=== PATIENT | female | born 1970 | race Caucasian/White ===

== ENCOUNTER → 2018-02-09 | Outpatient (CLI) | payer OTHER ==
--- NOTE | 2018-02-09 16:03 | REP ---
Clinical: Dyspnea on exertion. . Comparison: None . Technique: PA and lateral. Findings: The mediastinum and cardiac silhouette are normal. The lung alvarez are clear and without acute consolidation, effusion, or pneumothorax. Subtle right hilar adenopathy cannot be excluded and may warrant chest CT evaluation. The skeletal structures are intact and normal. Impression: 1. Subtle right hilar adenopathy cannot be excluded. No prior exams for comparison. Consider chest CT with contrast for further investigation. Electronically Signed by Ector Huston MD 02/09/2018 03:55 P
== END ==
LOC: M LRY 15:11
PROVIDERS: ATTEND Nurse Practitioner Family
DX: R91.8 Other nonspecific abnormal finding of lung field (principal); R06.09 Other forms of dyspnea

== ENCOUNTER → 2018-03-08 | Outpatient (CLI) | payer OTHER ==
--- NOTE | 2018-03-08 17:55 | REPMRS ---
Patient History The patient states she has not had a clinical breast exam in over a year. Patient is postmenopausal. No known family history of cancer. Taking unspecified hormones for 2 years. Digital Mammo Screening Bilat: March 08, 2018 - Exam #: [id number] Bilateral CC and MLO view(s) were taken. Technologist: Sybil Smith, Technologist FINDINGS: There are scattered fibroglandular densities. There has been no change in the appearance of the mammogram from the prior studies. There is a mild amount of scattered fibroglandular density which is fairly symmetric. There is no interval development of dominant mass, architectural distortion, or clustered microcalcification suggestive of malignancy. Assessment: BI-RADS/ACR category 1 mammogram. Negative. Recommendation Routine screening mammogram of both breasts in 1 year (for women over age 40). This patient's Lifetime Breast Cancer RIsk is estimated at 7.4 %. This mammogram was interpreted with the aid of an FDA-approved computer-aided dectection system. Electronically Signed By: Ziggy Wood MD 03/08/18 [id number]
== END ==
LOC: M RAD 15:47
PROVIDERS: ATTEND Family Medicine
DX: Z12.31 Encounter for screening mammogram for malignant neoplasm of breast (principal)

== ENCOUNTER 2018-05-17 06:40 | Day surgery (SDC) | payer OTHER ==
[~2018-05-17] VITALS: Ht 160 cm; Wt 87.1 kg
[~2018-05-17 06:40] MED LIST: BUPR150T3 PO; CITA20TA7 PO; D5W 1,000 ML IV SCH; EZET10TA PO; LEVO125T4 PO; SIMV10TA2 PO; TESS100C PO
[2018-05-17] MEDS ORDERED: LIDOCAINE 1% MDV 20ML VIAL As Ordered ONE (07:18)
[2018-05-17] MEDS ORDERED: CETACAINE SPRAY 5GM As Ordered ONE (07:18)
[2018-05-17] MEDS ORDERED: EPINEPHrine 1MG/10ML SYRINGE 1.5IN As Ordered ONE (07:18)
[2018-05-17] MEDS ORDERED: LIDOCAINE VISCOUS 2% SOLN 15ML UDC As Ordered ONE (07:18)
[2018-05-17] MEDS ORDERED: fentaNYL 100 MCG/2 ML INJECTION (J3010) As Ordered ONE (07:20)
[2018-05-17] MEDS ORDERED: MIDAZOLAM INJ 2 MG/2 ML VIAL (J2250) As Ordered ONE ×2 (07:21→07:29)
[2018-05-17] MEDS ORDERED: THROMBIN SOLN 5,000 UNITS VIAL As Ordered ONE (08:07)
--- NOTE | 2018-05-17 08:35 | RO ---
DATE OF PROCEDURE: 05/17/2018 PREOPERATIVE DIAGNOSIS: Right lung mass, abnormal x-ray. POSTOPERATIVE DIAGNOSIS: Right lung mass, abnormal x-ray. PROCEDURE: Bronchoscopy. SURGEON: Dr. Tashi Sales CLAIM ADJUSTER: ANESTHESIA: Conscious sedation with 75 mcg of Fentanyl and 6 mg of Versed given intravenously and titrated for effect. Local anesthesia was 2% viscous Xylocaine in the nose, Cetacaine Lenox in the pharynx and 1% Xylocaine via the bronchoscope. Other medications are topical Thrombin 5000 units via the bronchoscope. Informed consent was obtained prior to the procedure. OPERATIVE FINDINGS: 1. Diffuse broadening of the shanique. 2. Complete compromise of the right main stem about skilled nursing down, both anteriorly and posteriorly, both intrinsic and with endobronchial disease. DESCRIPTION OF PROCEDURE: After the patient was identified and the above anesthesia given, the fiberoptic bronchoscope was easily passed via the right nares. Hypopharynx was entered and appeared normal. Vocal cords moved well. The trachea was widely patent. The shanique was quite broadened. The left lung was entered first. All segments and subsegments upper and lower lobes easily identified and widely patent. Only minimal changes of chronic bronchitis were noted. Attention was then turned to the right. There was significant extrinsic compression of the membranous portion of the right main stem posteriorly. This in conjunction with very significant amount of endobronchial disease compromised the right main stem. The right upper lobe was able to be entered, but was compromised. The scope was not able to be passed into the distal bronchus intermedius. Multiple biopsies were taken in the area with minimal bleeding. The area was then brushed. Due to coughing, Warren needle biopsies were not attempted. It should be noted that prior to any biopsies being taken, the Percepta brushes were deployed into the left mainstem. Topical Thrombin was then used and when good hemostasis was achieved the scope was withdrawn and the procedure terminated. The patient was taken to the recovery room in good stable condition. No immediate complications of conscious sedation were identified.
[2018-05-17 08:41] VITALS: BP 134/81
== END 2018-05-17 09:10 | disposition home or self-care (01) ==
LOC: M OPP 06:40
PROVIDERS: ATTEND Internal Medicine Pulmonary Disease
DX: C34.01 Malignant neoplasm of right main bronchus (principal); J41.0 Simple chronic bronchitis; E03.9 Hypothyroidism, unspecified; E78.00 Pure hypercholesterolemia, unspecified; Z79.899 Other long term (current) drug therapy; Z87.891 Personal history of nicotine dependence
CPT/HCPCS: 31623; 31625; 87070; 87102; 87116; 87205; 87206; 88104; 88305; 88342; J2250; J3010

== ENCOUNTER → 2018-05-31 | Outpatient (CLI) | payer OTHER ==
[~2018-05-31] MED LIST changes: -D5W 1,000 ML IV SCH; +DECA4TAB PO; +GASTROGRAFIN SOLUTION 30ML (Q9963) As Ordered ONE; +OLAN10TA2 PO; +ONDA8TAB7 PO; +PROC5TA PO
--- NOTE | 2018-05-31 14:37 | REP ---
MRI brain without contrast: History: Small cell carcinoma of the lung. Question metastasis. . Comparison study: No comparison brain imaging. Technique: Axial and sagittal imaging planes are utilized for T1 and T2-weighted scans. Sequences include spin-echo, fast spin echo, FLAIR, and diffusion weighted sequences. MRI findings: No bony calvarial lesion is seen. Craniocervical junction and upper cervical cord are normal in appearance. There is no MR evidence of significant paranasal sinus disease. No intraorbital abnormality is seen. The lateral, third, and fourth ventricles are normal in size and position. Garcia-white differentiation pattern is intact above and below the tentorium. There is no evidence of intracranial hemorrhage. No mass, infarction, extra-axial fluid collection or midline shift is seen. No abnormal white matter lesion is seen. Impression: Negative noncontrast brain MRI study. Electronically Signed by Aneudy Wood MD 05/31/2018 02:28 P
== END ==
LOC: M RAD 12:22
PROVIDERS: ATTEND Internal Medicine Pulmonary Disease
DX: Z85.118 Personal history of other malignant neoplasm of bronchus and lung (principal)
CPT/HCPCS: 70551; Q9963

== ENCOUNTER → 2018-06-05 | Outpatient (CLI) | payer OTHER ==
[~2018-06-05] MED LIST changes: -GASTROGRAFIN SOLUTION 30ML (Q9963) As Ordered ONE
--- NOTE | 2018-06-05 18:58 | REP ---
PET/CT: History: Staging small cell lung carcinoma. Comparisons: Comparison chest CT study June 01, 2018. Comparison is made with [facility] CT study April 24, 2018. TECHNIQUE: 53 minutes following the intravenous injection of a 9.01 mCi dose of F-18 FDG, three-dimensional PET scintigraphy is acquired from the skull base to the proximal thighs. Triplanar noncontrast CT scanning is acquired through the same anatomic range for attenuation correction, and image registration with scan parameters optimized to minimize radiation exposure to the patient. PET scintigraphy and CT datasets were fused and displayed on a workstation with multiplanar and projection display capability. PET/CT Findings: The large right hilar and mediastinal confluent mass seen on recent chest CT is hypermetabolic. Maximum standard uptake value within this large process is 11.21. There are two right pretracheal lymph nodes superior to this which are hypermetabolic as well with maximum standard uptake value 5.77 and 3.86 respectively. There is mildly increased metabolic activity in the associated right pleural effusion, maximum standard uptake value in the pleural fluid region is a 3.56. There is hypermetabolic liana uptake in the paraesophageal lymph nodes adjacent to the distal esophagus just above the diaphragmatic hiatus. Maximum standard uptake value here is 6.51. No other abnormal hypermetabolic uptake is seen. No abnormal adrenal uptake is seen. No abnormal abdominal or pelvic liana uptake is seen. Head and neck soft tissues are unremarkable. Impression: Extensive hypermetabolic uptake in the bulky right hilar and mediastinal process with adenopathy as above. Some pleural uptake is seen in the associated right pleural effusion. No extrathoracic hypermetabolic uptake is appreciated. Electronically Signed by Aneudy Wood MD 06/06/2018 08:17 A
== END ==
LOC: M PLARAD 10:30
PROVIDERS: ATTEND Internal Medicine Pulmonary Disease
DX: C34.31 Malignant neoplasm of lower lobe, right bronchus or lung (principal); J94.9 Pleural condition, unspecified
CPT/HCPCS: 78815; A9552

== ENCOUNTER → 2018-06-15 | Outpatient (CLI) | payer OTHER ==
[~2018-06-15] MED LIST changes: +VITA500045 PO
--- NOTE | 2018-06-19 13:46 | RADONC ---
RADIATION ONCOLOGY CONSULTATION NOTE DATE: 06/15/2018 CHART #: [id number] DIAGNOSIS: Small cell lung carcinoma. STAGE: Extensive. ECOG PERFORMANCE STATUS: 0. CONSULTATION NOTE: Ms. Shaw is a very pleasant 48-year-old white female with the diagnosis of extensive stage small-cell lung carcinoma who has initiated systemic therapy and been presented at our multidisciplinary tumor conference for discussion of consolidative external beam radiation therapy. HISTORY OF PRESENT ILLNESS: The patient has a 30 pack-year smoking history and smoked up until 2017. The patient had increasing dyspnea on exertion and a chest x-ray was ordered on 02/09/2018 which showed a possible subtle right hilar adenopathy could not be excluded. She also had a persistent cough and a CT of the chest was done 04/24/2018 which showed nonspecific mediastinal lymphadenopathy. There was also noted to be severe diffuse consolidation involving the right lower lobe. There was an obstructive bronchus intermedius and right lower lobe bronchi. There were mild ground glass opacities present within the posterior segment of the right upper lobe. There was some consolidation of the right middle lobe. There was also a small right pleural effusion. On 05/17/2018, the patient underwent biopsy of her right mainstem bronchus and pathology confirmed a small cell lung carcinoma. A head CT scan was done on 06/05/2018 and showed extensive hypermetabolic uptake with bulky right hilar and mediastinal lymphadenopathy. There was some pleural uptake seen in association with the right pleural effusion. No extra thoracic hypermetabolic uptake was seen. The patient was seen by Dr. Franz, her medical oncologist, and has initiated systemic therapy with cisplatin and etoposide. The patient's case was presented at our multidisciplinary tumor conference and there was question of lymphangitic spread throughout the right upper lobe as well as activity in the pleural effusion and bilateral mediastinal regions. This would cause the radiation field to be larger than could be tolerated, therefore, rendering her overall stage as extensive stage small-cell lung carcinoma. . PAST MEDICAL HISTORY: The patient's past medical history is positive for hypothyroidism. She has been in generally good health otherwise. ALLERGIES: The patient has NO KNOWN DRUG ALLERGIES. SOCIAL HISTORY: The patient had smoked a pack of cigarettes per day for over 25 years. She quit at the end of 2016. She drinks alcohol socially. FAMILY HISTORY: The patient's family history is positive for a brother with non-Hodgkin's lymphoma. REVIEW OF SYSTEMS: The patient's review of systems is positive for shortness of breath and some pain in her right chest wall and ribs. She also has pain in her right shoulder and back. It is otherwise noncontributory. Denies nausea, vomiting, fevers, chills, night sweats, diplopia, headaches, anxiety or depression, anorexia, weight loss, visual disturbances, chest pain, urinary or bowel difficulties, bone pain, or neurological problems. PHYSICAL EXAMINATION: The patient is a well-developed, well-nourished, 48-year-old female in no acute distress. HEENT exam is normocephalic, atraumatic. Extraocular movements are intact. There is no palpable cervical, supraclavicular, infraclavicular, axillary, or inguinal lymphadenopathy present. Lungs are clear to auscultation and percussion. Heart has a regular rate and rhythm. Abdomen is benign with no hepatosplenomegaly, masses, or tenderness. Skeletal examination reveals no tenderness to pressure or percussion of the bony skeleton. Extremities reveal no clubbing, cyanosis, or edema. Neurologic exam is grossly intact, as is the remainder of the physical examination. ASSESSMENT As per our discussion in multidisciplinary tumor conference, I believe this patient at this time would require too large a field of radiation to incorporate safely. In light of this, I agree with the plan to deliver systemic therapy initially and then to reevaluate her and possibly offer her consolidative radiation therapy after reevaluation. In light of this, I have set her up to see us again in approximately two months' time. I would defer to the expertise of Dr. Jeanie Franz, her medical oncologist, in regards to her systemic therapy. Dr. Franz will be also referring her back to us when she nears completion of that treatment and is reevaluated. This way we have closed the loop and will continue to follow her closely. Thank you for allowing us to participate in the care of this very pleasant woman. If I could be of any further assistance or provide you with any information, please feel free to contact me at anytime. As always with warm regards. The patient has been given our office number as well as my cell phone number if she has any questions whatsoever or if we could provide her with any assistance in the meantime. cc: Jeanie Franz MD [facility] [address] [place] [address] Sales, MD [facility] [id number] [facility] [id number]
== END ==
LOC: M ONCR 08:56
PROVIDERS: ATTEND Radiology Radiation Oncology
DX: C34.01 Malignant neoplasm of right main bronchus (principal)

== ENCOUNTER → 2018-06-18 | Outpatient (CLI) | payer OTHER ==
--- NOTE | 2018-06-18 16:54 | REP ---
Chest two views HISTORY: Right pleural effusion Comparison: 02/10/1980 There is loss of volume in the right hemithorax. Parenchymal density is present in the right lower lobe consistent with atelectasis or infiltrate. There is blunting of the right costophrenic angle due to a small pleural effusion. The left lung is clear. The heart is normal in size. The pulmonary vasculature is normal in appearance. The bony structure is intact. IMPRESSION: 1. Right lower lobe atelectasis or infiltrate with likely collapse of the right lower lobe. 2. Small right pleural effusion. Electronically Signed by Elvin Castano MD 06/18/2018 04:44 P
== END ==
LOC: M RAD 16:20
PROVIDERS: ATTEND Internal Medicine Medical Oncology
DX: J90 Pleural effusion, not elsewhere classified (principal)

== ENCOUNTER → 2018-06-21 | Outpatient (CLI) | payer OTHER ==
[~2018-06-21] MED LIST changes: +BUPIVACAINE HCL 0.5% 10 ML VIAL As Ordered ONE; +LIDOCAINE 2% MDV 20 ML VIAL As Ordered ONE; +ceFAZolin 1GM INJ (J0690 PER 500MG) As Ordered ONE
--- NOTE | 2018-06-27 12:04 | REPIR ---
DATE OF PROCEDURE: 06/21/2018 ATTENDING SURGEON: Dr. Brittany German ASSISTANTS: Cheryl Maurice and Apurva Acosta PREOPERATIVE DIAGNOSIS: Lung cancer. POSTOPERATIVE DIAGNOSIS: Lung cancer. PROCEDURE: Ultrasound-guided right internal jugular vein cannulation. Fluoroscopic guided right internal jugular vein tunneled central venous catheter with subcutaneous port placement using a Bard PowerPort with a 20 cm length catheter. INDICATION: The patient is a 48-year-old female with lung cancer who requires access for chemotherapy and will undergo placement of a Bard PowerPort Port-a-Cath. Risks, benefits and alternative treatment options were discussed with the patient. ANESTHESIA: Local with 20 mL of 2% lidocaine mixed with 0.5% Marcaine. FLUORO TIME: 0.1 minute. CONTRAST: None. COMPLICATIONS: None. DRAINS: None. SPECIMENS: None. PROCEDURE: The patient was taken to the angiography suite, placed supine on the angiography room table, and then prepped and draped in a standard surgical fashion. Ultrasound was used to guide cannulation of the right internal jugular vein. A port was placed in a pocket created in the right chest and a catheter was tunneled through the right internal jugular vein entry site and advanced through the introducer sheath. The catheter was cut to 23 cm and placed with the tip in the superior vena cava/right atrial junction. Catheter was attached to the port. The port was then placed in the pocket. The port was cannulated and noted to aspirate easily and then flushed with heparinized saline. The incisions were closed with #3-0 Monocryl in an inverted interrupted fashion. Steri-Strips and dressings were applied. The patient tolerated the procedure well. All instrument, sponge, needle counts were correct at the end of the case. There were no complications. Dr. German was present for and directed the entire case. The patient was transferred to the holding area and subsequently discharged in stable condition.
== END | disposition home or self-care (01) ==
LOC: M IRPRO 07:33
PROVIDERS: ATTEND Internal Medicine Medical Oncology
DX: C34.90 Malignant neoplasm of unspecified part of unspecified bronchus or lung (principal)
CPT/HCPCS: 36561; 77001; C1788; C1894; J0690

== ENCOUNTER → 2018-07-13 | Outpatient (CLI) | payer OTHER ==
[~2018-07-13] MED LIST changes: -BUPIVACAINE HCL 0.5% 10 ML VIAL As Ordered ONE; +GASTROGRAFIN SOLUTION 30ML (Q9963) As Ordered ONE; +ISOVUE-370 76% 100ML VIAL (Q9967) As Ordered ONE; -LIDOCAINE 2% MDV 20 ML VIAL As Ordered ONE; -ceFAZolin 1GM INJ (J0690 PER 500MG) As Ordered ONE
--- NOTE | 2018-07-13 13:14 | REP ---
Clinical: Small cell lung cancer for restaging. Technique: Axial contrast enhanced images from the thoracic inlet to the upper abdomen with coronal and sagittal re-formations using 100 ml Isovue 370 intravenous contrast material. Comparison: 06/01/2018. Findings: Moderate/large right pleural effusion is increased from prior examination. The large mass involving the right mid to inferior portion of the mediastinum and extending into the right infrahilar lung zone along with right hilar adenopathy has markedly improved from prior examination. While these improvements are difficult to quantify, as example soft tissue in the subcarinal space at the same level currently measures approximately 2.7 x 2.1 cm and previously measured greater than 3.8 x 4.9 cm. The atelectasis/partial collapse to the right lower lobe is again noted and similar to prior examination. Subtle area of non solid opacity along the periphery of the right upper lobe measuring 2.6 cm maximal diameter and small areas of consolidation versus mass somewhat obscured along the anterior margin of the right pleural effusion within the right lower lobe appear relatively similar to prior examination. The left hemithorax is clear. Mediastinum demonstrates relatively normal thoracic aorta, and heart/pericardium. The right main pulmonary artery demonstrates subtle narrowing due to surrounding elements of mass / adenopathy but appears improved as compared to prior examination. The left-sided pulmonary vasculature appear normal. Osseous structures are intact without focal abnormality. Limited upper abdomen demonstrates normal bilateral adrenal glands and stable right renal cyst. Impression: 1. Overall there has been considerably improved appearance to the malignancy and adenopathy which is markedly decreased in size when compared to prior examination. 2. A right pleural effusion has increased from prior examination. 3. Small areas of non solid opacity in the right lung appears similar to prior examination and are otherwise nonspecific. Electronically Signed by Ector Huston MD 07/13/2018 01:06 P
--- NOTE | 2018-07-13 13:18 | REP ---
Clinical: Small cell lung cancer for restaging status post chemotherapy. Technique: Axial contrast enhanced images from the lung bases to the pubic symphysis using oral (per protocol) and 100 ml Isovue 370 intravenous contrast material. Comparison: 06/01/2018. Findings: Liver, spleen, pancreas, gallbladder, bilateral adrenal glands and left kidney are normal. Right kidney includes stable 3 cm cyst. The enteric system is without obstruction or acute inflammatory process. Scattered sigmoid diverticula noted without acute diverticulitis. Pelvis demonstrates normal partially collapsed bladder and age-appropriate uterus/adnexa. No ascites. No free air. No adenopathy. Atherosclerotic changes to the aorta without aneurysm or dissection. Musculoskeletal structures intact without focal osseous abnormality. Impression: Stable simple right renal cyst. No acute abdominopelvic pathology appreciated. Sigmoid diverticulosis without acute diverticulitis. No evidence for metastatic disease. Specifically, no ascites, adenopathy, or focal inflammatory changes. Electronically Signed by Ector Huston MD 07/13/2018 01:09 P
== END ==
LOC: M RAD 09:29
PROVIDERS: ATTEND Internal Medicine Medical Oncology
DX: C34.90 Malignant neoplasm of unspecified part of unspecified bronchus or lung (principal); N28.1 Cyst of kidney, acquired; K57.30 Diverticulosis of large intestine without perforation or abscess without bleeding; J90 Pleural effusion, not elsewhere classified
CPT/HCPCS: 71260; 74177; Q9963; Q9967

== ENCOUNTER → 2018-08-10 | Outpatient (CLI) | payer OTHER ==
[~2018-08-10] MED LIST changes: -EZET10TA PO; +EZET10TA21 PO
--- NOTE | 2018-08-10 16:55 | REP ---
CT of the abdomen and pelvis multiphase imaging: CT abdomen is performed without IV contrast. CT of the abdomen and pelvis is performed with IV contrast during the portal venous phase of enhancement. CT of the abdomen is performed during the delayed equilibrium phase of enhancement. Bowel contrast is used on all phases of the study. Comparison is 07/13/2018. The a right pleural effusion in the visualized lower lung alvarez on the prior study has significantly improved. The hepatic parenchyma, gallbladder, pancreas and spleen are unremarkable and unchanged. The adrenals are unremarkable and unchanged. There is a Bosniak type 1 simple cyst in the upper pole right kidney measuring at 2.9 cm, not significantly changed. The kidneys are otherwise unremarkable. The abdominal aorta is unremarkable. There is no periaortic adenopathy or mass. The bowel and mesentery are unremarkable and unchanged. Pelvis: The uterus, adnexa and bladder are unremarkable. There is no adenopathy or ascites. The pelvic bowel loops are unremarkable. There are no lytic, blastic or destructive skeletal changes. Impression: The previous right pleural effusion has significantly decreased. Stable simple cyst in the upper pole of the right kidney, unchanged. Otherwise, negative CT study of the abdomen and pelvis. Electronically Signed by Jose D Rice MD 08/10/2018 04:47 P
--- NOTE | 2018-08-10 17:04 | REP ---
CT of the chest with IV contrast: Comparison is 07/13/2018. The previous right pleural effusion and compression atelectasis of the right lower lobe has almost entirely resolved. The right hilar and subcarinal adenopathy has improved and is almost entirely resolved. There is no other mediastinal lymph node enlargement. There is no left hilar lymph node enlargement. The semi solid pleural-based lesion laterally in the right upper lobe measures 2.6 cm and is unchanged. The small pleural based nodules posteriorly in the right lower lobe are unchanged. There are no lytic, blastic or destructive skeletal changes, as previously. Impression: There has been improvement from the prior study as described. Electronically Signed by Jose D Rice MD 08/10/2018 04:56 P
--- NOTE | 2018-08-10 17:13 | REP ---
CT brain without and with IV contrast: History: Restaging. Small cell lung carcinoma. Comparison MRI study is from May 31, 2018. CT contrast dose: 100 ml of intravenous Isovue 370. CT findings: No bony calvarial lesion is seen. There is vascular calcification at the distal carotid arteries bilaterally. The visualized paranasal sinuses are clear. No intraorbital lesion is appreciated. Garcia-white differentiation pattern is normal above and below the tentorium. There is no evidence of cranial mass or hemorrhage. Contrast enhanced study shows enhancement in normal vascular structures. No abnormal contrast enhancement is appreciated. Impression: There is no evidence of intracranial metastasis. Electronically Signed by Aneudy Wood MD 08/10/2018 05:46 P
== END ==
LOC: M RAD 14:20
PROVIDERS: ATTEND Internal Medicine Medical Oncology
DX: C34.90 Malignant neoplasm of unspecified part of unspecified bronchus or lung (principal); N28.1 Cyst of kidney, acquired; R91.8 Other nonspecific abnormal finding of lung field
CPT/HCPCS: 70470; 71260; 74178; Q9963; Q9967

== ENCOUNTER → 2018-08-28 | Outpatient (CLI) | payer OTHER ==
[~2018-08-28] MED LIST changes: -GASTROGRAFIN SOLUTION 30ML (Q9963) As Ordered ONE; -ISOVUE-370 76% 100ML VIAL (Q9967) As Ordered ONE
--- NOTE | 2018-08-29 11:09 | RADONC ---
RADIATION ONCOLOGY CONSULTATION NOTE DATE: 08/28/2018 CHART NUMBER: [id number] DIAGNOSIS: Small cell lung carcinoma. STAGE: Extensive. ECOG PERFORMANCE STATUS: 0 CONSULTATION NOTE: Ms. Shaw as a very pleasant, 48-year-old white female with the diagnosis of extensive stage small-cell lung carcinoma who has been undergoing systemic therapy and recently completed her fourth cycle of chemotherapy consisting of initially cis-ketchikan and etoposide, and subsequently undergoing carboplatin/etoposide/atezolizumab. The patient reports that her last cycle of chemotherapy was on August 09. She is now presenting for consideration of external beam radiation therapy for thoracic consolidation. The patient was initially seen by us on 06/15/2018, and I refer to that note for a more thorough history of present illness. PAST MEDICAL HISTORY: The patient's past medical history is positive for hypothyroidism. She has been in otherwise good health. ALLERGIES: The patient has NO KNOWN DRUG ALLERGIES. SOCIAL HISTORY: The patient had smoked a pack of cigarettes per day for over 25 years. She quit in late 2016. She drinks alcohol socially. FAMILY HISTORY: The patient's family history is positive for brother with non-Hodgkin's lymphoma. REVIEW OF SYSTEMS: The patient's review of systems is noncontributory. Denies nausea, vomiting, fevers, chills, night sweats, diplopia, headaches, anxiety or depression, anorexia, weight loss, visual disturbances, chest pain, urinary or bowel difficulties, bone pain, or neurological problems. PHYSICAL EXAMINATION: The patient is a well-developed, well-nourished, 48-year-old white female, in no acute distress. HEENT exam is normocephalic, atraumatic. Extraocular movements are intact. There is no palpable cervical, supraclavicular, infraclavicular, axillary, or inguinal lymphadenopathy present. Lungs are clear to auscultation and percussion. Heart has a regular rate and rhythm. Abdomen is benign with no hepatosplenomegaly, masses, or tenderness. Skeletal examination reveals no tenderness to pressure or percussion of the bony skeleton. Extremities reveal no clubbing, cyanosis, or edema. Neurologic exam is grossly intact, as is the remainder of the physical examination. ASSESSMENT: I believe this patient would be a candidate for thoracic consolidative radiation therapy and I have so informed her. I have discussed with the patient in detail the potential benefits as well as possible acute and chronic sequelae of external beam radiation therapy. We discussed logistics of treatment planning, simulation and subsequent fractionated daily radiation treatments. I have scheduled the patient for the next available simulation slot and radiation treatments will begin subsequently. Thank you for allowing us to participate in the care of this very pleasant woman. If I could be of any further assistance or provide with you any information, please free to contact me anytime. cc: MD Tashi Martinez MD MTDD
== END ==
LOC: M ONCR 09:01
PROVIDERS: ATTEND Radiology Radiation Oncology
DX: C34.01 Malignant neoplasm of right main bronchus (principal)

== ENCOUNTER → 2018-09-05 | Outpatient (CLI) | payer OTHER ==
--- NOTE | 2018-09-05 12:52 | REP ---
NUCLEAR LUNG DIFFERENTIAL VENTILATION PERFUSION SCAN: Following the intravenous administration of 1.1 millicuries technetium 99m tagged MAA and the inhalation of 2 millicuries of technetium 99m DTPA aerosol, images of the lungs are obtained in the anterior and posterior projections. There is a greater degree of greater degree of ventilation and perfusion in the left lung compared to the right. Matching ventilation and perfusion defects are seen in the right upper and lower lung zones with no areas of V/Q mismatch. Differential counts are obtained in the upper, middle and lower thirds of each lung. The mean perfusion of the left lung is 66.6% and of the right lung is 33.4%. The mean ventilation of the left lung is 68.3% and of the right lung is 31.7%. Electronically Signed by Jose D Garcia MD 09/07/2018 12:58 P
--- NOTE | 2018-09-05 13:00 | REP ---
CHEST, TWO VIEWS: Two views of the chest are performed. Comparison made with prior CT of 08/10/2018 as well as other prior CT exams and chest radiographs. There is a mass like density in the right apex laterally. There is a small amount of right pleural fluid or thickening. There is linear fibroatelectatic change medially in the right lung base. Left lung is clear. Heart is normal in size. Mediastinal silhouette is unchanged. Right central venous catheter is seen with the tip in the superior vena cava. IMPRESSION: Pleural based mass density right apex. Small amount of right pleural fluid or thickening at the costophrenic angle. Mild linear fibroatelectatic change medial right lung base. Electronically Signed by Jose D Garcia MD 09/08/2018 06:26 P
== END ==
LOC: M RAD 09:52
PROVIDERS: ATTEND Radiology Radiation Oncology
DX: C34.31 Malignant neoplasm of lower lobe, right bronchus or lung (principal)
CPT/HCPCS: 71046; 78598; A9540; A9567

== ENCOUNTER → 2018-09-19 | Outpatient (RCR) | payer OTHER ==
--- NOTE | 2018-09-04 10:25 | RADONC ---
RADIATION ONCOLOGY SIMULATION NOTE: DATE OF SERVICE: 09/03/2018 CHART NUMBER: [id number]. SIMULATION NOTE: Ms. Shaw was taken to the CT scan for CT simulation of her lung field. CT was accomplished without difficulty or discomfort. Radiation treatment planning is underway, and radiation treatments will begin subsequently. An immobilization device was created without difficulty or discomfort. It will be used throughout the course of treatment. I was physically present throughout the course of CT simulation.
--- NOTE | 2018-09-18 11:26 | RADONC ---
RADIATION ONCOLOGY PROGRESS NOTE DATE: 09/17/2018 CHART NUMBER: [id number] PROGRESS NOTE: Ms. Shaw is presently at a dose of 540 cGy to her right lung and is tolerating treatments quite well at this point with no complaints related to her radiation therapy. She is having no increased difficulty swallowing or breathing. REVIEW OF SYSTEMS: The patient's review of systems is noncontributory. Denies nausea, vomiting, fevers, chills, night sweats, diplopia, headaches, anxiety or depression, anorexia, weight loss, visual disturbances, chest pain, urinary or bowel difficulties, bone pain, or neurological problems. PHYSICAL EXAMINATION: The patient's skin shows no evidence of moist or dry desquamation. The remainder of her physical exam remains unchanged. Ms. Shaw is tolerating treatments quite well and radiation will continue as scheduled.
[~2018-09-19] MED LIST changes: +LEVO150T7 PO; +ONDA8TAB10 PO; -ONDA8TAB7 PO; -SIMV10TA2 PO; +SIMV10TA21 PO; +SYNT125T PO
== END ==
LOC: M ONCR 09-03 13:43
PROVIDERS: ATTEND Radiology Radiation Oncology
DX: C34.01 Malignant neoplasm of right main bronchus (principal)

== ENCOUNTER 2018-10-19 15:06 | Outpatient (RCR) | payer OTHER ==
--- NOTE | 2018-09-25 10:50 | RADONC ---
RADIATION ONCOLOGY PROGRESS NOTE DATE: 09/24/2018. CHART NUMBER: [id number] Mrs. Yisel Shaw, with a diagnosis of small cell carcinoma of the lung, extensive, is currently receiving local regional radiotherapy. Her current dose is 1440 cGy of an anticipated 3780 cGy. Thus far, she has no problems related to her disease or to her treatments. REVIEW OF SYSTEMS: She specifically denies any nausea, vomiting, coughing, sputum production or hemoptysis. She also denies significant difficulty with breathing. Her energy level is such that she is able to maintain most for day-to-day activities without any alteration of her lifestyle. Skin irritation is not an issue for her, although she does complain of some skin itching. EXAMINATION FINDINGS: The skin within the irradiated volume looks normal. There is no palpable peripheral lymphadenopathy. Lungs are distant bilaterally. Heart is regular without murmurs. The remainder of the physical examination is unchanged. IMPRESSION: Tolerating therapy well. PLAN: Treatments to continue
--- NOTE | 2018-10-03 10:50 | RADONC ---
RADIATION ONCOLOGY PROGRESS NOTE DATE: 10/01/2018 CHART NUMBER: [id number]. Yisel Shaw with a diagnosis of a small cell carcinoma of the lung, extensive, is currently receiving local regional radiotherapy. Her current dose is 2340 cGy of an anticipated 3780 cGy and then consider boosting. She reports no significant ill effects from the treatment. REVIEW OF SYSTEMS: She specifically denies any nausea, vomiting, coughing, sputum production or hemoptysis. She is experiencing a minimal amount of odynophagia with some sensation of food "sticking" in her esophagus. She takes smaller bites when she eats and eats softer food to avoid this sensation. She also denies any major issues with fatigue and reports no skin irritation. EXAMINATION FINDINGS: The skin within the irradiated volume looks normal without any appreciable erythema and certainly no focal desquamation. There is no palpable peripheral lymphadenopathy and lungs are distant bilaterally but clear. The remainder of the physical examination is unchanged. IMPRESSION: Tolerating therapy well. PLAN: Treatments to continue.
--- NOTE | 2018-10-11 10:18 | RADONC ---
RADIATION ONCOLOGY PROGRESS NOTE DATE: 10/08/2018 CHART NUMBER: [id number] PROGRESS NOTE: Ms. Shaw is presently at a dose of 2880 cGy to her right lung and is tolerating treatments quite well at this point with no complaints related to radiation therapy. She is having no increased difficulty swallowing or other problems. REVIEW OF SYSTEMS: The patient's review of systems is noncontributory. Denies nausea, vomiting, fevers, chills, night sweats, diplopia, headaches, anxiety or depression, anorexia, weight loss, visual disturbances, chest pain, urinary or bowel difficulties, bone pain, or neurological problems. PHYSICAL EXAMINATION: The patient's skin is in good condition with no evidence of moist or dry desquamation. The remainder of her physical exam remains unchanged. Ms. Shaw is tolerating treatments quite well and radiation will continue as scheduled.
--- NOTE | 2018-10-17 09:43 | RADONC ---
RADIATION ONCOLOGY PROGRESS NOTE DATE: 10/15/2018 CHART NUMBER: [id number] PROGRESS NOTE: Ms. Shaw is presently at a dose of 3780 cGy to her right lung and is tolerating treatments quite well at this point with no complaints related to her radiation therapy. She is having no increased difficulty breathing or swallowing. REVIEW OF SYSTEMS: The patient's review of systems is noncontributory. Denies nausea, vomiting, fevers, chills, night sweats, diplopia, headaches, anxiety or depression, anorexia, weight loss, visual disturbances, chest pain, urinary or bowel difficulties, bone pain, or neurological problems. PHYSICAL EXAMINATION: The patient's skin is in good condition with no evidence of radiation change present. There is no moist or dry desquamation. The remainder of physical exam remains unchanged. Ms. Shaw is tolerating treatments quite well and radiation will continue as scheduled.
[~2018-10-19 15:06] MED LIST changes: -LEVO150T7 PO; -ONDA8TAB10 PO; +ONDA8TAB7 PO; +SIMV10TA2 PO; -SIMV10TA21 PO; -SYNT125T PO
== END 2018-10-20 ==
LOC: M ONCR 15:06
PROVIDERS: ATTEND Radiology Radiation Oncology
DX: C34.01 Malignant neoplasm of right main bronchus (principal)

== ENCOUNTER 2018-10-25 15:24 | Outpatient (RCR) | payer OTHER ==
--- NOTE | 2018-10-24 10:50 | RADONC ---
RADIATION ONCOLOGY PROGRESS NOTE DATE: 10/23/2018 CHART NUMBER: [id number] PROGRESS NOTE: Mrs. Shaw with a diagnosis of small cell carcinoma of the lung is currently receiving local regional adjuvant radiotherapy. Her current dose is 4680 cGy and she seems to be tolerating her radiotherapy reasonably well. She denies any nausea, vomiting, coughing, sputum production or hemoptysis, although she has a minimal amount of odynophagia. Her energy level is satisfactory and she is able to maintain most of her day-to-day activities without any alteration of her lifestyle. Skin irritation is minimal within the irradiated volume. EXAMINATION FINDINGS: Skin within the irradiated volume shows minimal amount of erythema with no focal desquamation. There is no palpable peripheral lymphadenopathy. Lungs are distant bilaterally. Heart: Regular without murmurs. Abdomen: Without evidence of hepatomegaly, masses, deep abdominal tenderness. Extremities: Without cyanosis, clubbing or edema. The remainder of the physical examination is unchanged. IMPRESSION: Tolerating therapy well. PLAN: Treatments to continue. Thank you for allowing us the opportunity of participation in the management of this patient.
--- NOTE | 2018-10-27 09:32 | RADONC ---
RADIATION ONCOLOGY END OF TREATMENT SUMMARY DATE OF END OF TREATMENT SUMMARY: 10/25/2018 DATE: 10/26/2018 CHART NUMBER: [id number] DIAGNOSIS: Small cell carcinoma of the lung, stage extensive. ECOG PERFORMANCE STATUS: 0. PLAN OF RADIOTHERAPY: Local regional radiotherapy for local regional control/consolidation radiotherapy. Date radiotherapy started 09/13/2018. Date radiotherapy completed 10/25/2018. Dose - The patient received a total of 5040 cGy administered in 28 fractions over 42 elapsed days. Prior to treatment delivery localization was accomplished upon our CT simulator and treatment portals were defined by the use of multiple leaf collimators. Gradual reducing portals were implemented during her course of radiotherapy in order to spare as much normal lung tissue as possible. She was treated with a 15 MV photon beam in via a 3-D conformal radiotherapy technique. The 95 isodose line was chosen both in reference to the initial 3780 cGy as well as the final seven treatments of 1260 cGy. STATUS OF TUMOR: The patient's tumor status will be determined by future radiographic studies, howver, during course of radiotherapy there was no clinical evidence of local regional progression nor was there clinical evidence of further distant metastatic disease. TOLERANCE IN GENERAL: Treatments were relatively well tolerated. She denied any significant nausea, vomiting, coughing, sputum production or hemoptysis. She did experience some mild odynophagia/dysphagia during her course of therapy which would be anticipated with such therapies. DISPOSITION: Return to clinic in 1 month for postradiotherapy followup visit and skin check and she was advised to return to her referring physicians as per their directions and instructions. Thank you for referring this very sarah lady to us allowing us the opportunity of participation in her overall management. cc: MD Tasih Martinez MD
== END 2018-11-19 ==
LOC: M ONCR 15:24
PROVIDERS: ATTEND Radiology Radiation Oncology
DX: C34.01 Malignant neoplasm of right main bronchus (principal)

== ENCOUNTER → 2018-11-13 | Outpatient (CLI) | payer OTHER ==
[~2018-11-13] MED LIST changes: +ISOVUE-370 76% 100ML VIAL (Q9967) As Ordered ONE
--- NOTE | 2018-11-13 11:52 | REP ---
CT BRAIN WITHOUT AND WITH IV CONTRAST: HISTORY: Small cell lung carcinoma. Restaging post chemo. Comparison head CT study August 10, 2018. CT CONTRAST DOSE: 75 mL of intravenous Isovue [address] FINDINGS: Preliminary digital hazmat technician radiograph remains unremarkable. Bony calvarium is intact on bone window settings. Visualized paranasal sinuses are clear. There is mild vascular calcification in the distal internal carotid arteries again seen. On soft tissue window settings, there is no evidence of intracranial mass or hemorrhage. No evidence of infarct, extra-axial fluid collection, mass or midline shift. Postcontrast images show enhancement in normal vasculature. No abnormal intracranial enhancement is appreciated. IMPRESSION: There is no evidence of intracranial metastasis. Electronically Signed by Aneudy Wood MD 11/13/2018 04:07 P
== END ==
LOC: M RAD 10:55
PROVIDERS: ATTEND Internal Medicine Medical Oncology
DX: C34.91 Malignant neoplasm of unspecified part of right bronchus or lung (principal); Z92.21 Personal history of antineoplastic chemotherapy; Z92.3 Personal history of irradiation
CPT/HCPCS: 70470; Q9967

== ENCOUNTER → 2018-11-28 | Outpatient (CLI) | payer OTHER ==
[~2018-11-28] MED LIST changes: -ISOVUE-370 76% 100ML VIAL (Q9967) As Ordered ONE
--- NOTE | 2018-11-30 10:25 | RADONC ---
RADIATION ONCOLOGY FOLLOWUP NOTE DATE: 11/28/2018 CHART NUMBER: [id number] DIAGNOSIS: Small cell carcinoma of the lung. STAGE: Extensive. ECOG PERFORMANCE STATUS: 0 FOLLOWUP NOTE: Ms. Shaw is a very pleasant, 48-year-old white female with the diagnosis of extensive stage small-cell lung carcinoma, who is presenting to us today for routine followup visit 1 month post completion of external beam radiation therapy. The patient presents today reporting that generally she is doing quite well with no complaints at this time related to her radiation therapy or disease. She has got no skin pain or other problems at this point. REVIEW OF SYSTEMS: The patient's review of systems is noncontributory. Denies nausea, vomiting, fevers, chills, night sweats, diplopia, headaches, anxiety or depression, anorexia, weight loss, visual disturbances, chest pain, urinary or bowel difficulties, bone pain, or neurological problems. PHYSICAL EXAMINATION: The patient is a well-developed, well-nourished, 48-year-old white female in no acute distress. HEENT exam is normocephalic, atraumatic. Extraocular movements are intact. There is no palpable cervical, supraclavicular, infraclavicular, axillary, or inguinal lymphadenopathy present. Lungs are clear to auscultation and percussion. Heart has a regular rate and rhythm. Abdomen is benign with no hepatosplenomegaly, masses, or tenderness. Skeletal examination reveals no tenderness to pressure or percussion of the bony skeleton. Extremities reveal no clubbing, cyanosis, or edema. Neurologic exam is grossly intact, as is the remainder of the physical examination. ASSESSMENT: The patient is clinically doing quite well now post radiation. She is scheduled for a PET scan on 12/04/2018 and is continuing with her maintenance systemic therapy with her medical oncologist, Dr. Franz on 12/10/2018. In light of her close management and followup with her medical oncologist and her continued treatment, I am discharging this patient from our followup except on a p.r.n. basis. cc: MD Tashi Martinez MD
== END ==
LOC: M ONCR 13:55
PROVIDERS: ATTEND Radiology Radiation Oncology
DX: C34.01 Malignant neoplasm of right main bronchus (principal); Z92.3 Personal history of irradiation

== ENCOUNTER → 2018-12-25 | Outpatient (CLI) | payer OTHER ==
--- NOTE | 2018-12-25 19:08 | REP ---
PET/CT: History: Restaging small cell lung carcinoma. Status post chemo and radiation therapy. Comparisons: Comparison PET-CT study June 05, 2018. TECHNIQUE: 49 minutes following the intravenous injection of a 8.92 mCi dose of F-18 FDG, three-dimensional PET scintigraphy is acquired from the skull base to the proximal thighs. Triplanar noncontrast CT scanning is acquired through the same anatomic range for attenuation correction, and image registration with scan parameters optimized to minimize radiation exposure to the patient. PET scintigraphy and CT datasets were fused and displayed on a workstation with multiplanar and projection display capability. PET/CT Findings: There is improved aeration and less volume loss in the right lower lobe. However, there is fibrosis and discoid atelectasis post radiation change in the right lower lobe and much of the right middle and upper lobe. A small right pleural effusion is again noted perhaps slightly larger than on the prior study. The right lower lobe mass is dramatically improved or resolved. There is some mildly hypermetabolic uptake in the postradiation fibrosis and consolidation in the right lower lobe with maximum standard uptake value 3.25. Mildly increased uptake is seen in the right middle lobe parenchymal disease similarly with maximum standard uptake value 3.10. Mildly hypermetabolic pleural uptake is seen at mid chest posteriorly with maximum standard uptake value 3.83. There is mildly hypermetabolic uptake in the reactive change in the right upper lobe with maximum standard uptake value 4.85. There is an area of peripheral consolidation in the right upper lobe which is hypermetabolic, maximum SUV 5.78. The right lung pulmonary parenchymal changes may be inflammatory and/or post radiation pneumonitis changes. There is no hypermetabolic liana or hilar uptake. No abnormal uptake is seen in the adrenal glands. No abnormal hypermetabolic uptake is seen in the abdomen or pelvis. The head and neck soft tissues are unremarkable. Impression: Significant improvement in the previously noted bulky right hilar and mediastinal hypermetabolic uptake. Increased inflammatory versus postradiation change in the right lung with mildly hypermetabolic infiltrates. Small right pleural effusion is seen increased in size. No other abnormal hypermetabolic uptake seen. Electronically Signed by Aneudy Wood MD 12/25/2018 07:52 P
== END ==
LOC: M PLARAD 09:30
PROVIDERS: ATTEND Nurse Practitioner Family
DX: C34.91 Malignant neoplasm of unspecified part of right bronchus or lung (principal)
CPT/HCPCS: 78815; A9552

== ENCOUNTER → 2019-03-18 | Outpatient (CLI) | payer OTHER ==
[~2019-03-18] MED LIST changes: +GASTROGRAFIN SOLUTION 30ML (Q9963) As Ordered ONE; +ISOVUE-370 76% 100ML VIAL (Q9967) As Ordered ONE; +LEVO150T7 PO; +ONDA8TAB10 PO; -ONDA8TAB7 PO; -SIMV10TA2 PO; +SIMV10TA21 PO; +SYNT125T PO
--- NOTE | 2019-03-19 02:54 | REP ---
Clinical: Restaging lung cancer. Technique: Axial contrast enhanced images from the thoracic inlet to the upper abdomen with coronal and sagittal re-formations using 100 ml Isovue 370 intravenous contrast material. Comparison: 08/10/2018. Findings: Current examination demonstrates small right pleural effusion along with significant presumed scarring and fibrotic changes and a somewhat linear distribution along the medial aspect of the right hemithorax with small elements of scattered air space disease. Findings are increased from prior examination and nonspecific. Differential diagnosis would include progressive radiation type changes, but underlying active disease cannot definitively be excluded. No significant mediastinal or bony hilar adenopathy noted. Small amount of pericardial fluid is also identified and likely again related to post radiation type changes. The left hemithorax appears relatively well aerated and clear. Thoracic aorta without aneurysm or dissection. No cardiomegaly. Musculoskeletal structures appear intact. [id number] identified with tip in the SVC. Limited upper abdomen demonstrates normal bilateral adrenal glands and stable right renal cyst. Impression: 1. Increased findings as described above involving the right hemithorax which may represent primarily post radiation type changes and should be correlated clinically. Subtle superimposed acute active disease cannot be excluded. Electronically Signed by Ector Huston MD 03/19/2019 02:46 A
--- NOTE | 2019-03-19 03:01 | REP ---
Clinical: Restaging lung cancer. Technique: Axial contrast enhanced images from the lung bases to the pubic symphysis using oral (per protocol) and 100 ml Isovue 370 intravenous contrast material with coronal and sagittal re-formations. Comparison: 08/10/2018. Findings: Liver, spleen, pancreas, gallbladder, bilateral adrenal glands and left kidney are normal. Right kidney includes stable 2.8 cm cysts. The enteric system is without obstruction or acute inflammatory process. Few scattered sigmoid diverticula noted without acute diverticulitis. Somewhat prominent and mildly irregular submucosal fat deposition at the cecum and proximal ascending colon is suggested and consideration for colonoscopy may be warranted. Pelvis demonstrates normal bladder and age-appropriate uterus/adnexa. No ascites. No free air. No intraperitoneal or retroperitoneal adenopathy. No obvious mass/metastatic disease. Atherosclerotic changes to the aorta noted without aneurysm. Musculoskeletal structures without focal abnormality. Impression: 1. Stable right renal cyst. 2. Few scattered sigmoid diverticula without acute diverticulitis. 3. Mildly prominent and somewhat asymmetric fat deposition at the cecum and proximal ascending colon may warrant colonoscopy. 4. No ascites, adenopathy, or evidence for metastatic disease noted. Electronically Signed by Ector Huston MD 03/19/2019 02:53 A
== END ==
LOC: M RAD 07:56
PROVIDERS: ATTEND Internal Medicine Medical Oncology
DX: C34.90 Malignant neoplasm of unspecified part of unspecified bronchus or lung (principal)
CPT/HCPCS: 71260; 74177; Q9963; Q9967

== ENCOUNTER → 2019-04-02 | Outpatient (CLI) | payer OTHER ==
[~2019-04-02] MED LIST changes: -GASTROGRAFIN SOLUTION 30ML (Q9963) As Ordered ONE; -ISOVUE-370 76% 100ML VIAL (Q9967) As Ordered ONE
--- NOTE | 2019-04-02 19:42 | REP ---
PET/CT: History: Restaging lung cancer. Small cell carcinoma right lung diagnose April 2017. Status post chemo immuno therapy Comparisons: Comparison PET-CT studies are from December 25, 2018 and June 05, 2018. Comparison chest CT study March 18, 2019. TECHNIQUE: 45 minutes following the intravenous injection of a 8.73 mCi dose of F-18 FDG, three-dimensional PET scintigraphy is acquired from the skull base to the proximal thighs. Triplanar noncontrast CT scanning is acquired through the same anatomic range for attenuation correction, and image registration with scan parameters optimized to minimize radiation exposure to the patient. PET scintigraphy and CT datasets were fused and displayed on a workstation with multiplanar and projection display capability. PET/CT Findings: Head and neck soft tissues are unremarkable. There is a post radiation at the GE distribution in the right posterior extrathoracic skeletal muscle and chronic infiltrates with collapse in the right lung. Maximum standard uptake value in the extrathoracic soft tissues and 3.41. Maximum standard uptake value in the chronic a post radiation infiltrates in the right lung range up to 4.89. There is some minimal borderline pleural uptake in the right base laterally, maximum standard uptake value here 3.08. This is a improved morphologically however from the prior study. No focal mass lesion is seen in the pleural space. No other abnormal hypermetabolic uptake is seen within the thorax. No abnormal uptake is seen in the abdomen or pelvis. Scan is otherwise unremarkable. Impression: Findings consistent with postradiation change in the right thorax. No evidence of recurrent hypermetabolic mass lesion or adenopathy. Electronically Signed by Aneudy Wood MD 04/02/2019 08:03 P
== END ==
LOC: M PLARAD 13:27
PROVIDERS: ATTEND Internal Medicine Medical Oncology
DX: C34.81 Malignant neoplasm of overlapping sites of right bronchus and lung (principal)
CPT/HCPCS: 78815; A9552

== ENCOUNTER → 2019-06-25 | Outpatient (CLI) | payer OTHER ==
[~2019-06-25] MED LIST changes: +PROHANCE 279.3MG/ML 15ML VIAL As Ordered ONE
--- NOTE | 2019-06-25 15:59 | REP ---
MRI BRAIN WITHOUT CONTRAST FOLLOWED BY WITH CONTRAST: HISTORY: Extensive stage small cell lung carcinoma. COMPARISON: Head CT study, November 13, 2018. TECHNIQUE: Axial and sagittal imaging planes are utilized for T1- and T2-weighted scans. Sequences include spin-echo, fast spin echo, FLAIR, and diffusion weighted sequences. Gadolinium enhancement dose is 16 mL of intravenous ProHance. MRI FINDINGS: No bony calvarial defect is appreciated. Craniocervical junction and upper cervical cord are unremarkable. There is no MR evidence of significant paranasal sinus disease. No intraorbital abnormality is seen. The deep facial and skull base soft tissues are symmetric and unremarkable. Lateral, third, and fourth ventricles are normal in size and position. Garcia-white differentiation pattern is normal above and below the tentorium. There is no evidence of intracranial mass, infarct, hemorrhage, or midline shift. Diffusion-weighted scans show no evidence of restricted diffusion to suggest acute ischemia. Postcontrast images show enhancement in normal vasculature. No abnormal intracranial contrast enhancement is appreciated. IMPRESSION: There is no evidence of intracranial metastatic disease. Electronically Signed by Aneudy Wood MD 06/25/2019 04:41 P
== END ==
LOC: M RAD 14:44
PROVIDERS: ATTEND Internal Medicine Medical Oncology
DX: C34.90 Malignant neoplasm of unspecified part of unspecified bronchus or lung (principal)
CPT/HCPCS: 70553; A9576

== ENCOUNTER → 2019-07-25 | Outpatient (CLI) | payer OTHER ==
[~2019-07-25] MED LIST changes: +GASTROGRAFIN SOLUTION 30ML (Q9963) As Ordered ONE; +ISOVUE-370 76% 100ML VIAL As Ordered ONE; -PROHANCE 279.3MG/ML 15ML VIAL As Ordered ONE
--- NOTE | 2019-07-26 06:29 | REP ---
Clinical: Lung cancer surveillance. Technique: Axial contrast enhanced images from the thoracic inlet to the upper abdomen with coronal and sagittal re-formations (followed by CT of the abdomen and pelvis) using 100 ml Isovue 370 intravenous contrast material. Comparison: 03/18/2019. Findings: Areas of consolidation with air bronchograms and fibrosis/scarring involving the right hemithorax are again identified and consistent with post radiation type changes, but obviously increased as compared to most recent prior examination. The left hemithorax is well-aerated and clear. No obvious adenopathy. No effusion. No pneumothorax. Mediastinum demonstrates relatively normal thoracic aorta without aneurysm or dissection. Atherosclerotic changes to the coronary arteries noted without cardiomegaly. Surrounding musculoskeletal structures are intact. [id number] identified with tip in the SVC. Impression: 1. Increased elements of consolidation with air bronchograms and fibrosis/scarring involving the right hemithorax which may represent progressive post radiation type changes. However active process/recurrence cannot definitively be excluded. PET-CT surveillance may be warranted. Electronically Signed by Ector Huston MD 07/26/2019 06:19 A
--- NOTE | 2019-07-26 07:07 | REP ---
Clinical: Lung cancer surveillance. Technique: Axial contrast enhanced images from the lung bases to the pubic symphysis using oral (per protocol) and 100 ml Isovue 370 intravenous contrast material with coronal and sagittal re-formations. Comparison: 03/18/2019. Findings: Lung bases demonstrate presumed post radiation type changes involving the medial perihilar right lower lobe. Visualized heart and pericardium appear grossly normal. Liver, spleen, pancreas, gallbladder, bilateral adrenal glands and kidneys are relatively normal / stable. A 2.7 cm benign right renal cyst is again noted. The enteric system is without obstruction or acute inflammatory process. Pelvis demonstrates normal bladder and age-appropriate uterus/adnexa. No ascites. No free air. No obvious adenopathy. Abdominal aorta and vasculature appear normal. Musculoskeletal structures are intact without acute osseous abnormality. Impression: 1. Presumed postradiation type changes involving the visualized medial right lower lung zone. 2. Stable benign 2.7 cm right renal cyst. 3. No acute abdominopelvic pathology appreciated. Electronically Signed by Ector Huston MD 07/26/2019 06:58 A
== END ==
LOC: M RAD 08:54
PROVIDERS: ATTEND Internal Medicine Medical Oncology
DX: C34.90 Malignant neoplasm of unspecified part of unspecified bronchus or lung (principal); J84.10 Pulmonary fibrosis, unspecified; I25.10 Atherosclerotic heart disease of native coronary artery without angina pectoris; Z95.828 Presence of other vascular implants and grafts
CPT/HCPCS: 71260; 74177; Q9963; Q9967

== ENCOUNTER → 2019-08-13 | Outpatient (CLI) | payer OTHER ==
[~2019-08-13] MED LIST changes: -GASTROGRAFIN SOLUTION 30ML (Q9963) As Ordered ONE; -ISOVUE-370 76% 100ML VIAL As Ordered ONE
--- NOTE | 2019-08-14 09:52 | REP ---
PET/CT: HISTORY: Restaging lung cancer. 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 COMPARISONS: Comparison PET-CT studies are reviewed from April 02, 2019 and June 05, 2018. December 25, 2018 prior PET-CT is also reviewed. TECHNIQUE: 45 minutes following the intravenous injection of a 8.73 mCi dose of F-18 FDG, three-dimensional PET scintigraphy is acquired from the skull base to the proximal thighs. Triplanar noncontrast CT scanning is acquired through the same anatomic range for attenuation correction, and image registration with scan parameters optimized to minimize radiation exposure to the patient. PET scintigraphy and CT datasets were fused and displayed on a workstation with multiplanar and projection display capability. PET/CT FINDINGS: Head and neck soft tissues are unremarkable. There is extensive collapse and consolidation in the right upper lobe and right lower lobe consistent with postradiation change. There is hypermetabolic uptake distributed in this collapsed lung parenchyma as before. Maximum standard uptake value 6.22. There is some collapse and consolidation in the right middle lobe as well medially. This parenchymal disease aligns in a linear fashion anteriorly to posteriorly consistent with radiation field deformity. Distribution of parenchymal disease similar to the prior study. There is no definite hilar adenopathy or mediastinal adenopathy or liana focus of hypermetabolic uptake. No abnormal adrenal uptake is seen. Mottled uptake pattern is seen in the liver. No hypermetabolic focus of the liver or spleen uptake is seen. Distribution of tracer is otherwise normal in the abdomen and pelvis. 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 No other suspicious hypermetabolic focus is seen. Electronically Signed by Aneudy Wood MD 08/14/2019 02:55 P
== END ==
LOC: M PLARAD 14:31
PROVIDERS: ATTEND Internal Medicine Medical Oncology
DX: C34.01 Malignant neoplasm of right main bronchus (principal)
CPT/HCPCS: 78815; A9552

== ENCOUNTER → 2019-12-06 | Outpatient (CLI) | payer OTHER ==
[~2019-12-06] MED LIST changes: +ISOVUE-370 76% 100ML VIAL As Ordered ONE; +LEVO112T2 PO; -PROC5TA PO; +PROC5TAB57 PO
--- NOTE | 2019-12-06 15:29 | REP ---
INDICATION: SCLC COMPARISON: 07/25/2019, 03/18/2019 TECHNIQUE: Axial contrast enhanced images from the thoracic inlet to the upper abdomen using 75 ml Isovue 370 intravenous contrast material administered without complication. Coronal and sagittal reformations obtained. FINDINGS: There is increased opacity with air bronchograms in the right apex and further areas of consolidation/scarring with air bronchograms along the medial aspect of the right hemithorax with a clear vertical border most compatible with post radiation type changes. The aerated right lung zones demonstrate no nodule or new mass lesion and there is no right pleural effusion or pneumothorax. The left hemithorax is well aerated and clear. No obvious adenopathy. Further evaluation of the mediastinum demonstrates stable atherosclerotic changes to the thoracic aorta and coronary arteries without aortic aneurysm or cardiomegaly. No significant pericardial effusion. [id number]-[id number]-Hpuc identified with tip in the SVC. Surrounding musculoskeletal structures are intact. Limited upper abdomen demonstrates normal bilateral adrenal glands and stable right upper pole renal cyst. 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 No obvious acute pathology otherwise appreciated. <Electronically signed by Ector Huston > 12/06/19 [id number]
== END ==
LOC: M RAD 14:25
PROVIDERS: ATTEND Specialist
DX: C34.90 Malignant neoplasm of unspecified part of unspecified bronchus or lung (principal); I70.0 Atherosclerosis of aorta; I25.10 Atherosclerotic heart disease of native coronary artery without angina pectoris; Z95.828 Presence of other vascular implants and grafts
CPT/HCPCS: 71260; Q9967

== ENCOUNTER → 2020-03-19 | Outpatient (CLI) | payer OTHER ==
[~2020-03-19] MED LIST changes: -BUPR150T3 PO; +BUPR150T4 PO
--- NOTE | 2020-03-20 04:35 | REP ---
INDICATION: LUNG CA F/U COMPARISON: 12/06/2019 TECHNIQUE: Axial contrast enhanced images from the thoracic inlet to the upper abdomen with coronal and sagittal reformations using 75 ml Isovue 370 intravenous contrast material. This CT examination was performed using the following dose reduction techniques: Automated exposure control, adjustment of mA and/or kv according to the patient's size, and use of iterative reconstruction technique. FINDINGS: Chronic post surgical and post radiation changes are identified along the medial right hemithorax with areas of chronic consolidation and bronchiectasis unchanged from prior examination. The aerated portions of the right lung along with the left hemithorax are clear and without acute consolidation, new nodule or mass lesion. No effusion. No pneumothorax. Tracheobronchial tree is relatively patent. Further evaluation of the mediastinum demonstrates minimal atherosclerotic changes to the thoracic aorta along with atherosclerotic changes to the coronary arteries. No aortic aneurysm/dissection or cardiomegaly. No significant pericardial effusion. Kappzw-E-Furt identified with tip in the SVC. Surrounding musculoskeletal structures are intact and without acute osseous abnormality. Limited upper abdomen demonstrates normal bilateral adrenal glands and stable right renal cyst. IMPRESSION: 1. Stable postsurgical and post radiation type changes involving the right hemithorax. 2. No acute mediastinal or pleuroparenchymal process. 3. No evidence for recurrence or metastatic disease. <Electronically signed by Ector Huston > 03/20/20 [id number]
== END ==
LOC: M RAD 10:23
PROVIDERS: ATTEND Specialist
DX: C34.90 Malignant neoplasm of unspecified part of unspecified bronchus or lung (principal)
CPT/HCPCS: 71260; Q9967

== ENCOUNTER → 2020-06-26 | Outpatient (CLI) | payer OTHER ==
[~2020-06-26] MED LIST changes: +BUPR150T12 PO; -BUPR150T4 PO; +CEPH500C PO; +LEVO100C PO
--- NOTE | 2020-06-26 13:44 | REP ---
INDICATION: LUNG CANCER. Small cell lung carcinoma. Status post chemo and radiation therapy. COMPARISON: Comparison CT study is from 19 March 2020.. TECHNIQUE: Helical scanning is acquired following intravenous injection of 75 mL of Isovue 370. 3 mm axial images are reformatted. Coronal and sagittal MPR images were generated. FINDINGS: There is considerable volume loss in a paramedian distribution throughout the right hemithorax with atelectasis, bronchiectasis, and air bronchograms. This is compatible with post radiation change. It is unchanged when compared with the 19 March 2020 study. There is no visible lung mass or new parenchymal nodule. There is a granulomatous calcification visible in the left upper lobe unchanged. Vascular calcification is observed. There are 2 stable lymph nodes in the AP window region of the left mediastinum. The largest of these has short axis dimension of 7 mm. These are unchanged. Normal adrenal glands are observed. There is a cyst in the upper pole the right kidney and mild diffuse fatty infiltration of the liver is again seen. No bony destructive lesion is seen. There are healing fractures involving the right 1st anterior and 3rd lateral ribs. There is a right-sided Wqkucz-V-Pawm catheter. IMPRESSION: No evidence of mass or adenopathy. Post radiation changes in the right lung with considerable volume loss. Right-sided Yjzvvg-Z-Ynyd catheter. <Electronically signed by Ziggy Wood > 06/26/20 [id number]
== END ==
LOC: M RAD 11:16
PROVIDERS: ATTEND Specialist
DX: C34.90 Malignant neoplasm of unspecified part of unspecified bronchus or lung (principal)
CPT/HCPCS: 71260; Q9967

== ENCOUNTER → 2020-09-04 | Outpatient (CLI) | payer OTHER ==
[~2020-09-04] MED LIST changes: -ISOVUE-370 76% 100ML VIAL As Ordered ONE; +LEVO25TA5 PO; +METF-838 PO; -OLAN10TA2 PO; +OLAN1TAB20 PO; +PROAAER10 INH
--- NOTE | 2020-09-04 14:58 | REP ---
INDICATION: Assess stenosis TECHNIQUE: Carotid ultrasonography was performed bilaterally FINDINGS: Right: CCA systolic: 99.5 centimeters/second CCA diastolic: 19.1 centimeters/second ICA systolic: 80.0 centimeters/second ICA diastolic: 35.0 centimeters/second ICA CCA ratio: 0.80 Left: CCA systolic: 76.3 centimeters/second CCA diastolic: 21.2 centimeters/second ICA systolic: 78.0 centimeters/second ICA diastolic: 33.9 centimeters/second ICA CCA ratio: 1.02 Vertebral artery: Right: Antegrade flow left: Antegrade flow A subtle amount of echogenic material is seen along the carotid arterial ponce some of which casts a slight acoustic shadow. IMPRESSION: According to the SRU criteria there is less than 50% stenosis of the internal carotid artery bilaterally. This is secondary to a small degree of both calcified and noncalcified atheromatous plaque formation. <Electronically signed by Andrew Catherine > 09/04/20 [id number]
== END ==
LOC: M RAD 13:55
PROVIDERS: ATTEND Family Medicine
DX: H53.9 Unspecified visual disturbance (principal)

== ENCOUNTER → 2020-09-23 | Outpatient (CLI) | payer OTHER ==
--- NOTE | 2020-09-23 16:59 | REPMRS ---
Patient History The patient states she has not had a clinical breast exam in over a year. Patient is postmenopausal, had previous chest radiation therapy at age 47, has history of right lobe lung cancer at age 47, and had previous chemotherapy at age 47. No known family history of cancer. Patient states no breast complaints today. Patient has signed MRS History Sheet. Digital Woman Screen Mammo: September 23, 2020 - Exam #: [id number] Bilateral CC and MLO view(s) were taken. Technologist: Rebecca Espinoza, Technologist Prior study comparison: March 08, 2018, bilateral digital mammo screening bilat, performed at [facility]. FINDINGS: There are scattered fibroglandular densities. Screening. Digital screening (2D) mammography was performed bilaterally in the CC and MLO projections. Additionally, breast tomosynthesis (3D mammography) was performed bilaterally in the CC and MLO projections. Todays exam was compared to the prior exam/exams. By history, the patient has no complaints of a palpable breast abnormality or other significant breast complaints. The breasts are unchanged in size and shape. There is an unchanged nodule in the right breast , stable since 10-18-16.There are no jeniffer-soft tissue densities or spiculated masses. There is no internal architectural distortion. There are no suspicious jeniffer-calcific clusters. Skin thickening or nipple retraction is not present. IMPRESSION: BI-RADS Category 2- Benign Findings. There is no evidence of malignant alteration of the breasts. Followup examination recommended in one year. The Volpara volumetric breast density category is B, there are scattered areas of fibroglandular densities. This mammogram was read with the assistance of [employer],an FDA approved computer aided detection system for mammography. The lifetime Tyrer-Cuzick score is 7.1 % Negative x-ray reports should not delay surgical consultation if a dominant or clinically suspicious mass is present. Not all breast cancers can be identified by mammography. Therefore, we recommend that you continue to perform regular breast self-examination and physical examination and then promptly contact your physician of any concerns or changes. Adenosis and dense breasts may obscure an underlying neoplasm. Assessment: BI-RADS/ACR category 2 mammogram. Benign Findings. Recommendation Routine screening mammogram of both breasts in 1 year. Electronically Signed By: Andrew Catherine DO 09/23/20 [id number]
== END ==
LOC: M WHC 16:10
PROVIDERS: ATTEND Family Medicine
DX: Z12.31 Encounter for screening mammogram for malignant neoplasm of breast (principal); Z85.110 Personal history of malignant carcinoid tumor of bronchus and lung; Z92.21 Personal history of antineoplastic chemotherapy; Z92.3 Personal history of irradiation; Z78.0 Asymptomatic menopausal state

== ENCOUNTER → 2020-10-06 | Outpatient (CLI) | payer OTHER ==
[~2020-10-06] MED LIST changes: +ISOVUE-370 76% 100ML VIAL As Ordered ONE
--- NOTE | 2020-10-06 10:39 | REP ---
INDICATION: LUNG CA COMPARISON: Multiple prior examinations dating through 07/25/2019 including PET-CT dated 08/13/2019. TECHNIQUE: Axial contrast enhanced images from the thoracic inlet to the upper abdomen with coronal and sagittal reformations using 75 ml Isovue 370 intravenous contrast material. This CT examination was performed using the following dose reduction techniques: Automated exposure control, adjustment of mA and/or kv according to the patient's size, and use of iterative reconstruction technique. FINDINGS: Area of consolidation with air bronchograms involving the medial aspect of the right hemithorax with associated volume loss remains essentially unchanged compared through 07/25/2019. PET-CT dated 08/13/2019 suggested progressive post radiation type changes. Aerated portions of the right hemithorax and the left hemithorax are otherwise clear and without new/acute consolidation, suspicious nodule or mass. No effusion. No pneumothorax. Further evaluation of the mediastinum demonstrates relatively normal/stable appearance to the thoracic aorta, pulmonary vasculature, and heart/pericardium. Incidental atherosclerotic changes to the coronary arteries again noted. No cardiomegaly or pericardial effusion. No obvious acute adenopathy. Xsuijt-E-Rabz identified with tip in the right atrium. Musculoskeletal structures intact and without acute process. Limited upper abdomen demonstrates normal bilateral adrenal glands and stable 3 cm right renal cyst. IMPRESSION: 1. Stable post radiation type changes involving the right hemithorax. 2. No new/acute pleuroparenchymal or mediastinal process. <Electronically signed by Ector Huston > 10/06/20 [id number]
== END ==
LOC: M RAD 09:34
PROVIDERS: ATTEND Specialist
DX: C34.11 Malignant neoplasm of upper lobe, right bronchus or lung (principal)
CPT/HCPCS: 71260; Q9967

== ENCOUNTER → 2021-01-11 | Outpatient (CLI) | payer OTHER ==
[~2021-01-11] MED LIST changes: +FLUT22IN INH
--- NOTE | 2021-01-11 14:09 | REP ---
INDICATION: LUNG CA COMPARISON: 10/06/2020 through 03/18/2019 TECHNIQUE: Axial contrast enhanced images from the thoracic inlet to the upper abdomen with coronal and sagittal reformations using 75 ml Isovue 370 intravenous contrast material. This CT examination was performed using the following dose reduction techniques: Automated exposure control, adjustment of mA and/or kv according to the patient's size, and use of iterative reconstruction technique. FINDINGS: Consolidation with air bronchograms and volume loss involving the right hemithorax is similar to prior examination and consistent with post radiation type changes. Bilateral aerated lung alvarez are clear and without acute consolidation, suspicious nodule or mass. No effusion. No pneumothorax. No obvious adenopathy. Further evaluation of the mediastinum demonstrates stable atherosclerotic changes to the thoracic aorta and coronary arteries. No cardiomegaly or significant pericardial effusion. [id number] identified with tip in the SVC. Surrounding osseous structures without acute abnormality. Limited upper abdomen demonstrates normal bilateral adrenal glands and stable right renal cyst. IMPRESSION: 1. Post radiation type changes similar to prior examinations. 2. No obvious acute mediastinal or pleuroparenchymal process appreciated. <Electronically signed by Ector Huston > 01/11/21 [id number]
== END ==
LOC: M RAD 12:41
PROVIDERS: ATTEND Specialist
DX: C34.90 Malignant neoplasm of unspecified part of unspecified bronchus or lung (principal)
CPT/HCPCS: 71260; Q9967

== ENCOUNTER → 2021-04-05 | Outpatient (CLI) | payer OTHER ==
[~2021-04-05] MED LIST changes: +ONDA-84 PO; -ONDA8TAB10 PO
== END ==
LOC: M RAD 13:07
PROVIDERS: ATTEND Specialist
DX: C34.90 Malignant neoplasm of unspecified part of unspecified bronchus or lung (principal)
CPT/HCPCS: 71260; Q9967

== ENCOUNTER → 2021-05-21 | Outpatient (CLI) | payer OTHER ==
[~2021-05-21] MED LIST changes: -ISOVUE-370 76% 100ML VIAL As Ordered ONE
== END ==
LOC: M RAD 13:16
PROVIDERS: ATTEND Specialist
DX: M79.604 Pain in right leg (principal)

== ENCOUNTER → 2021-05-25 | Outpatient (CLI) | payer OTHER | LOC: M RAD 14:41 | PROVIDERS: ATTEND Internal Medicine Pulmonary Disease | DX: R05.9 Cough, unspecified (principal) ==

== ENCOUNTER → 2021-08-02 | Outpatient (CLI) | payer OTHER ==
[~2021-08-02] MED LIST changes: +GASTROGRAFIN SOLUTION 30ML (Q9963) As Ordered ONE; +ISOVUE-370 76% 100ML VIAL As Ordered ONE
== END ==
LOC: M RAD 16:29
PROVIDERS: ATTEND Internal Medicine Medical Oncology
DX: C34.91 Malignant neoplasm of unspecified part of right bronchus or lung (principal)

== ENCOUNTER → 2021-11-16 | Outpatient (CLI) | payer OTHER ==
[~2021-11-16] MED LIST changes: -GASTROGRAFIN SOLUTION 30ML (Q9963) As Ordered ONE
== END ==
LOC: M RAD 08:12
PROVIDERS: ATTEND Specialist
DX: C34.91 Malignant neoplasm of unspecified part of right bronchus or lung (principal)
CPT/HCPCS: 71260; Q9967

== ENCOUNTER → 2022-02-28 | Outpatient (CLI) | payer OTHER | LOC: M RAD 16:00 | PROVIDERS: ATTEND Specialist | DX: C34.91 Malignant neoplasm of unspecified part of right bronchus or lung (principal); I31.39 Other pericardial effusion (noninflammatory); R59.9 Enlarged lymph nodes, unspecified ==

== ENCOUNTER → 2022-06-06 | Outpatient (CLI) | payer OTHER ==
[~2022-06-06] MED LIST changes: -ISOVUE-370 76% 100ML VIAL As Ordered ONE; +PROA1AER2 INH
== END ==
LOC: M PLARAD 07:35
PROVIDERS: ATTEND Specialist
DX: C34.31 Malignant neoplasm of lower lobe, right bronchus or lung (principal)
CPT/HCPCS: 78815; A9552

== ENCOUNTER → 2022-09-30 | Outpatient (CLI) | payer OTHER ==
[~2022-09-30] MED LIST changes: +ISOVUE-370 76% 100ML VIAL As Ordered ONE; +LEVO1TAB40 PO; +PROC10TA5 PO
== END ==
LOC: M RAD 14:06
PROVIDERS: ATTEND Specialist
DX: C34.90 Malignant neoplasm of unspecified part of unspecified bronchus or lung (principal)
CPT/HCPCS: 71260; Q9967

== ENCOUNTER → 2022-11-28 | Outpatient (CLI) | payer OTHER ==
[~2022-11-28] MED LIST changes: +BENZ200C70 PO; +CEFU1TAB22; +DEXA4TA PO; -ISOVUE-370 76% 100ML VIAL As Ordered ONE
== END ==
LOC: M RAD 16:19
PROVIDERS: ATTEND Internal Medicine Pulmonary Disease
DX: R91.8 Other nonspecific abnormal finding of lung field (principal)

== ENCOUNTER 2023-01-09 10:33 | Inpatient (IN) | payer OTHER ==
[~2023-01-09] VITALS: Ht 160 cm; Wt 74.1 kg
[2023-01-09 11:42] LABS: VENOUS O2 SATURATION 78.9 % (60.0-80.0); VENOUS PARTIAL PRESSURE CO2 36.3 mmHg (38.0-50.0); VENOUS PARTIAL PRESSURE O2 43.9 mmHg (30.0-50.0); VENOUS STANDARD HCO3 23.2 MMOL/L; VENOUS TOTAL CO2 24.1 MMOL/L (24.0-28.0)
[2023-01-09 11:44] LABS: BASO % 0.2 % (0.0-1.0); EOS # 0.1 10^3/uL (0.0-0.5); EOS % 0.3 % (0.0-3.0); HEMATOCRIT 38.5 % (36.0-47.0); HEMOGLOBIN 12.2 g/dl (12.0-15.5); LYMPH # 2.4 10^3/uL (1.5-5.0); LYMPH % 11.3 % (24.0-44.0); MEAN CORPUSCULAR HEMOGLOBIN 25.4 pg (27.0-33.0); MEAN CORPUSCULAR HGB CONC 31.7 g/dl (32.0-36.5); MONO % 9.8 % (2.0-8.0); NEUTROPHILS # 16.5 10^3/uL (1.5-8.5); NEUTROPHILS % 77.2 % (36.0-66.0); PLATELET COUNT, AUTOMATED 393 10^3/uL (150-450); RED BLOOD COUNT 4.81 10^6/uL (4.00-5.40); WHITE BLOOD COUNT 21.3 10^3/uL (4.0-10.0)
[2023-01-09 11:56] LABS: INR 1.27; PROTHROMBIN TIME 15.5 SECONDS (12.5-14.5)
[2023-01-09 11:57] LABS: PARTIAL THROMBOPLASTIN TIME 36.8 SECONDS (24.8-34.2)
[2023-01-09 12:04] LABS: MONO # 2.1 10^3/uL (0.0-0.8)
[2023-01-09 12:16] LABS: CK-MB VALUE MASS < 1.0 NG/ML (<3.6)
[2023-01-09 12:18] LABS: AMYLASE 32 U/L (30-118); CPK CREATINE PHOSPHOKINASE 16 U/L (34-145); MB/CK RELATIVE INDEX 6.25 (< OR =4)
[2023-01-09 12:19] LABS: APPEARANCE, URINE HAZY (CLEAR); BACTERIA, URINE AUTO NEGATIVE (NEGATIVE); BILIRUBIN, URINE AUTO NEGATIVE (NEGATIVE); BLOOD, URINE BLOOD 1+ (NEGATIVE); COLOR, URINE AMBER (YELLOW); GLUCOSE, URINE (UA) AUTO NEGATIVE (NEGATIVE); KETONE, URINE AUTO NEGATIVE (NEGATIVE); LEUKOCYTE ESTERASE, URINE AUTO TRACE (NEGATIVE); MUCUS, URINE SMALL (NEGATIVE); NITRITE, URINE AUTO NEGATIVE (NEGATIVE); PROTEIN, URINE AUTO 1+ mg/dL (NEGATIVE); RBC, URINE AUTO 0 /HPF (0-3); SPECIFIC GRAVITY URINE AUTO 1.024 (1.002-1.035); SQUAMOUS EPITHELIAL CELL UR AU 1 /HPF (0-6); WBC, URINE AUTO 1 /HPF (0-3)
[2023-01-09 12:19] LABS: ALBUMIN 2.6 G/DL (3.2-5.2); ALKALINE PHOSPHATASE 102 U/L (46-116); ALT/SGPT 21 U/L (7.0-40); AST/SGOT 17 U/L (<34); BILIRUBIN,DIRECT 0.4 MG/DL (<0.4); BILIRUBIN,TOTAL 0.7 MG/DL (0.3-1.2); BLOOD UREA NITROGEN 12 MG/DL (9-23); CALCIUM LEVEL 8.7 MG/DL (8.5-10.1); CARBON DIOXIDE LEVEL 24 MMOL/L (20-31); CHLORIDE LEVEL 99 MMOL/L (98-107); CREATININE FOR GFR 0.57 MG/DL (0.55-1.30); GLOMERULAR FILTRATION RATE > 60.0 (>51); GLUCOSE, FASTING 90 MG/DL (60-100); POTASSIUM SERUM 4.1 MMOL/L (3.5-5.1); SODIUM LEVEL 133 MMOL/L (136-145); TOTAL PROTEIN 7.2 G/DL (5.7-8.2)
[2023-01-09 12:25] LABS: PROCALCITONIN 0.13 ng/ml
[2023-01-09] MEDS ORDERED: ISOVUE-370 76% 100ML VIAL As Ordered ONE (12:52)
[2023-01-09] MEDS ORDERED: PIPERACILLIN/TAZOBACTAM SOD 4.5 GM in D5W MINI-BAG PLUS 50 ML IV ONE (13:05)
[2023-01-09] MEDS ORDERED: ACETAMINOPHEN TAB 650MG DOSE (2X325MG) PO ONE (13:20)
[2023-01-09 13:32] LABS: CK-MB VALUE MASS < 1.0 NG/ML (<3.6)
[2023-01-09 13:33] LABS: CPK CREATINE PHOSPHOKINASE 15 U/L (34-145); MB/CK RELATIVE INDEX 6.66 (< OR =4)
[2023-01-09] MEDS ORDERED: VANCOMYCIN HCL 1,500 MG in NS 250 ML IV ONE (14:25)
[2023-01-09] MEDS ORDERED: NS 2,220 ML in IV 1 EA IV ONE (14:25)
[2023-01-09] MEDS ORDERED: IBUPROFEN 400MG TAB PO ONE (14:35)
[2023-01-09] MEDS ORDERED: VANCOMYCIN HCL 750 MG, VIAL MATE ADAPTER 1 EACH in D5W 250 ML IV ONE ×6 (15:00)
[2023-01-09] MEDS ORDERED: MED REC IN PROGRESS XX SCH (15:35)
[2023-01-09] MEDS ORDERED: GLUCAGON INJ 1MG VIAL SC PRN (16:40)
[2023-01-09] MEDS ORDERED: GLUCOSE 4GM CHEW TABLET PO PRN (16:40)
[2023-01-09] MEDS ORDERED: DEXTROSE 50% 50ML SYRINGE IV PRN (16:40)
[2023-01-09 16:54] LABS: PROCALCITONIN 0.14 ng/ml
[2023-01-09] MEDS: INSULIN LISPRO (NovoLOG) PER UNIT SC SCH (17:30)
[2023-01-09] MEDS ORDERED: BENZ200C70 PO (17:31)
[2023-01-09] MEDS ORDERED: LEVO125T4 PO (17:32)
[2023-01-09] MEDS ORDERED: PROC10TA5 PO (17:33)
[2023-01-09] MEDS ORDERED: HOME MED LIST COMPLETE! XX SCH (17:35)
[2023-01-09] MEDS ORDERED: ALBUTEROL SULFATE 2.5MG/0.5ML INH NEB SOLN NEB PRN (17:40)
[2023-01-09] MEDS ORDERED: LevoFLOXacin 750 MG TABLET PO SCH (18:00)
[2023-01-09] MEDS: NS 1,000 ML IV SCH (18:35)
[2023-01-09] MEDS: PIPERACILLIN/TAZOBACTAM SOD 4.5 GM in D5W MINI-BAG PLUS 50 ML IV SCH (18:47)
[2023-01-09 19:46] VITALS: BP 100/55; TEMP 97.1; O2SAT 95
[2023-01-09] MEDS: FLUTICASONE HFA 220 MCG 12 GM INHALER (FLOVENT) INH SCH (20:03)
[2023-01-09] MEDS ORDERED: BENZONATATE 100MG CAPSULE PO ONE (20:25)
[2023-01-09] MEDS ORDERED: LEVALBUTEROL 1.25MG 0.5ML CONCENTRATE NEB INH PRN (20:25)
[2023-01-09] MEDS ORDERED: SIMVASTATIN 10 MG TAB PO SCH (21:00)
[2023-01-09] MEDS ORDERED: INSULIN LISPRO (NovoLOG) PER UNIT SC SCH (21:00)
[2023-01-09] MEDS: VANCOMYCIN HCL 1,000 MG, VIAL MATE ADAPTER 1 EACH in NS 250 ML IV SCH (21:51)
[2023-01-09] MEDS ORDERED: HEPARIN SOD (PORCINE) 5000UNITS/ML 1ML VIAL/SYRINGE SQ SCH (22:00)
[2023-01-09 23:58] VITALS: BP 153/74; TEMP 98.4; O2SAT 98
[2023-01-10] MEDS: PIPERACILLIN/TAZOBACTAM SOD 4.5 GM in D5W MINI-BAG PLUS 50 ML IV SCH ×3 (00:10→12:15)
[2023-01-10 02:22] VITALS: BP 92/48; TEMP 101.7; O2SAT 95
[2023-01-10] MEDS ORDERED: ACETAMINOPHEN TAB 650MG DOSE (2X325MG) PO PRN (02:30)
[2023-01-10] MEDS ORDERED: NS 500 ML IV ONE (02:35)
[2023-01-10] MEDS: NS 1,000 ML IV SCH (02:36)
[2023-01-10 03:48] VITALS: BP 109/55; TEMP 100.2; O2SAT 92
[2023-01-10] MEDS ORDERED: IBUPROFEN 400MG TAB PO ONE (03:55)
[2023-01-10] MEDS: VANCOMYCIN HCL 1,000 MG, VIAL MATE ADAPTER 1 EACH in NS 250 ML IV SCH (05:20)
[2023-01-10 05:50] LABS: BASO % 0.2 % (0.0-1.0); EOS # 0.1 10^3/uL (0.0-0.5); EOS % 0.5 % (0.0-3.0); HEMATOCRIT 32.2 % (36.0-47.0); LYMPH # 1.1 10^3/uL (1.5-5.0); LYMPH % 6.3 % (24.0-44.0); MEAN CORPUSCULAR HEMOGLOBIN 25.3 pg (27.0-33.0); MEAN CORPUSCULAR HGB CONC 31.4 g/dl (32.0-36.5); MEAN CORPUSCULAR VOLUME 80.5 fl (80.0-96.0); MONO # 1.5 10^3/uL (0.0-0.8); MONO % 8.6 % (2.0-8.0); NEUTROPHILS # 14.1 10^3/uL (1.5-8.5); NEUTROPHILS % 83.6 % (36.0-66.0); PLATELET COUNT, AUTOMATED 311 10^3/uL (150-450); WHITE BLOOD COUNT 16.8 10^3/uL (4.0-10.0)
[2023-01-10 06:00] VITALS: TEMP 98.8
[2023-01-10] MEDS ORDERED: LEVOTHYROXINE 125MCG TABLET (0.125MG) PO SCH (06:00)
[2023-01-10 06:01] LABS: HEMOGLOBIN 10.1 g/dl (12.0-15.5)
[2023-01-10 06:16] LABS: BLOOD UREA NITROGEN 6 MG/DL (9-23); CARBON DIOXIDE LEVEL 21 MMOL/L (20-31); CHLORIDE LEVEL 102 MMOL/L (98-107); CREATININE FOR GFR 0.49 MG/DL (0.55-1.30); GLOMERULAR FILTRATION RATE > 60.0 (>51); GLUCOSE, FASTING 94 MG/DL (60-100); POTASSIUM SERUM 3.7 MMOL/L (3.5-5.1); SODIUM LEVEL 134 MMOL/L (136-145)
[2023-01-10] MEDS: INSULIN LISPRO (NovoLOG) PER UNIT SC SCH ×2 (07:30→12:00)
[2023-01-10 08:00] VITALS: BP 100/58; TEMP 96.8; O2SAT 96
[2023-01-10] MEDS: FLUTICASONE HFA 220 MCG 12 GM INHALER (FLOVENT) INH SCH (08:11)
[2023-01-10] MEDS ORDERED: EZETIMIBE 10MG TABLET (ZETIA) PO SCH (09:00)
[2023-01-10] MEDS ORDERED: CitaloPRAM (CeleXA) 20 MG TAB PO SCH (09:00)
[2023-01-10 11:51] VITALS: BP 102/60; TEMP 98.1; O2SAT 96
[2023-01-10] MEDS ORDERED: LEVO1TAB40 PO (14:19)
[2023-01-10] MEDS ORDERED: LevoFLOXacin 750 MG TABLET PO ONE (15:00)
[2023-01-10 15:27] LABS: HEMOGLOBIN A1c 5.8 % (4.0-6.0)
== END 2023-01-10 15:48 | disposition home or self-care (01) | DRG 871 ==
LOC: M ED 10:33 → M ED INP 15:53 → ENRESERV 16:05 → M PCU 18:10
PROVIDERS: ADMIT Internal Medicine; ATTEND Internal Medicine
PROC: B246ZZZ Ultrasonography of Right and Left Heart (ICD-10-PCS; principal; 2023-01-10)
DX: A41.9 Sepsis, unspecified organism (principal); J18.9 Pneumonia, unspecified organism; C34.91 Malignant neoplasm of unspecified part of right bronchus or lung; D84.9 Immunodeficiency, unspecified; J70.1 Chronic and other pulmonary manifestations due to radiation; I10 Essential (primary) hypertension; E78.5 Hyperlipidemia, unspecified; E03.2 Hypothyroidism due to medicaments and other exogenous substances; F41.9 Anxiety disorder, unspecified; E11.9 Type 2 diabetes mellitus without complications; Z83.3 Family history of diabetes mellitus; Z79.890 Hormone replacement therapy; Z79.899 Other long term (current) drug therapy; Z79.84 Long term (current) use of oral hypoglycemic drugs; Z92.21 Personal history of antineoplastic chemotherapy

== ENCOUNTER → 2023-05-08 | Outpatient (CLI) | payer OTHER ==
[~2023-05-08] MED LIST changes: +CEFU1TAB22 PO
== END ==
LOC: M RAD 14:14
PROVIDERS: ATTEND Internal Medicine Pulmonary Disease
DX: R91.8 Other nonspecific abnormal finding of lung field (principal)

== ENCOUNTER → 2023-05-15 | Outpatient (CLI) | payer OTHER ==
[~2023-05-15] MED LIST changes: +GASTROGRAFIN SOLUTION 30ML ONE; +ISOVUE-370 76% 100ML VIAL ONE
== END ==
LOC: M PLAIMG 08:10
PROVIDERS: ATTEND Nurse Practitioner
DX: C34.90 Malignant neoplasm of unspecified part of unspecified bronchus or lung (principal); N28.1 Cyst of kidney, acquired
CPT/HCPCS: 71260; 74177; Q9963; Q9967

== ENCOUNTER → 2023-08-30 | Outpatient (CLI) | payer OTHER ==
[~2023-08-30] MED LIST changes: +GASTROGRAFIN SOLUTION 30ML As Ordered ONE; -GASTROGRAFIN SOLUTION 30ML ONE; +IRON65TA2 PO; +ISOVUE-370 76% 100ML VIAL As Ordered ONE; -ISOVUE-370 76% 100ML VIAL ONE; +SYNT112T2 PO; +TRIA1CR80 TOP
== END ==
LOC: M RAD 09:10
PROVIDERS: ATTEND Nurse Practitioner
DX: C34.91 Malignant neoplasm of unspecified part of right bronchus or lung (principal)
CPT/HCPCS: 71260; 74177; Q9967

== ENCOUNTER → 2023-08-31 | Outpatient (REF) ==
[~2023-08-31] MED LIST changes: -GASTROGRAFIN SOLUTION 30ML As Ordered ONE; -ISOVUE-370 76% 100ML VIAL As Ordered ONE
== END ==
LOC: M PLAIMG 09:33
PROVIDERS: ATTEND Internal Medicine
DX: C34.90 Malignant neoplasm of unspecified part of unspecified bronchus or lung (principal)

== ENCOUNTER → 2023-12-11 | Outpatient (CLI) | payer OTHER ==
[~2023-12-11] MED LIST changes: +ALBU2.5V10; +AZIT-12; +FLUT12AE3 INH; +GASTROGRAFIN SOLUTION 30ML As Ordered ONE; +ISOVUE-370 76% 100ML VIAL As Ordered ONE; +MAGN400T35 PO; +PRED20TA PO; +SYNT150T PO
== END ==
LOC: M RAD 13:01
PROVIDERS: ATTEND Dietitian, Registered
DX: C34.90 Malignant neoplasm of unspecified part of unspecified bronchus or lung (principal)
CPT/HCPCS: 71260; 74177; Q9963; Q9967

== ENCOUNTER → 2023-12-29 | Outpatient (CLI) | payer OTHER ==
[~2023-12-29] MED LIST changes: +CYAN100049; -GASTROGRAFIN SOLUTION 30ML As Ordered ONE; +IBUP-1022 PO; -ISOVUE-370 76% 100ML VIAL As Ordered ONE; +OMEP10CASR PO
== END ==
LOC: M RAD 13:33
PROVIDERS: ATTEND Specialist
DX: C34.90 Malignant neoplasm of unspecified part of unspecified bronchus or lung (principal)

== ENCOUNTER → 2024-01-24 | Outpatient (CLI) | payer OTHER ==
[~2024-01-24] MED LIST changes: +AZIT500T5 PO; +PROHANCE 279.3MG/ML 15ML VIAL ONE
== END ==
LOC: M PLAIMG 13:53
PROVIDERS: ATTEND Internal Medicine Hematology & Oncology
DX: C34.90 Malignant neoplasm of unspecified part of unspecified bronchus or lung (principal)
CPT/HCPCS: 70553; A9576

== ENCOUNTER → 2024-04-04 | Outpatient (CLI) | payer OTHER ==
[~2024-04-04] MED LIST changes: +FLUT1BLS5; +ISOVUE-370 76% 100ML VIAL ONE; +LEVO1TAB40; +PRED10TA2; -PROHANCE 279.3MG/ML 15ML VIAL ONE
== END ==
LOC: M PLAIMG 12:54
PROVIDERS: ATTEND Specialist
DX: C34.90 Malignant neoplasm of unspecified part of unspecified bronchus or lung (principal)

== ENCOUNTER → 2024-05-07 | Outpatient (CLI) | payer OTHER ==
[~2024-05-07] MED LIST changes: +CEFD1CAP9; -ISOVUE-370 76% 100ML VIAL ONE
== END ==
LOC: M PLARAD 11:06
PROVIDERS: ATTEND Internal Medicine Hematology & Oncology
DX: C34.91 Malignant neoplasm of unspecified part of right bronchus or lung (principal)
CPT/HCPCS: 78815; A9552

== ENCOUNTER → 2024-06-12 | Outpatient (REF) | payer OTHER ==
[~2024-06-12] MED LIST changes: +AMOX875T2; -LEVO100C PO; +LEVO100C2 PO
== END ==
LOC: M LAB REF 12:47
PROVIDERS: ATTEND Internal Medicine Pulmonary Disease
DX: R91.8 Other nonspecific abnormal finding of lung field (principal)

== ENCOUNTER → 2024-10-07 | Outpatient (CLI) | payer OTHER ==
[~2024-10-07] MED LIST changes: +LEVO137T2 PO; +TRIA80CR15 TOP
== END ==
LOC: M PLARAD 09:10
PROVIDERS: ATTEND Internal Medicine Hematology & Oncology
DX: C34.91 Malignant neoplasm of unspecified part of right bronchus or lung (principal)
CPT/HCPCS: 78815; A9552

== ENCOUNTER → 2024-10-31 | Outpatient (CLI) | payer OTHER ==
[~2024-10-31] MED LIST changes: -EZET10TA21 PO; +EZET10TA57 PO; -IBUP-1022 PO; +IBUP600T42 PO; +ISOVUE-370 76% 100 ML VIAL ONE
== END ==
LOC: M PLAIMG 11:40
PROVIDERS: ATTEND Internal Medicine Medical Oncology
DX: C34.11 Malignant neoplasm of upper lobe, right bronchus or lung (principal); I25.10 Atherosclerotic heart disease of native coronary artery without angina pectoris; J47.9 Bronchiectasis, uncomplicated; I31.39 Other pericardial effusion (noninflammatory); N28.1 Cyst of kidney, acquired; K80.20 Calculus of gallbladder without cholecystitis without obstruction; C77.1 Secondary and unspecified malignant neoplasm of intrathoracic lymph nodes
CPT/HCPCS: 71260; Q9967

== ENCOUNTER → 2024-11-13 | Outpatient (CLI) | payer OTHER ==
[~2024-11-13] MED LIST changes: -ISOVUE-370 76% 100 ML VIAL ONE; +LEVO1TAB39 PO; +LIDOCAINE 1% MDV 20 ML VIAL SC ONE
[2024-11-13 12:05] VITALS: TEMP 97.8
[2024-11-13 15:00] VITALS: BP 116/60; O2SAT 96
== END ==
LOC: M IRPRO 11:57
PROVIDERS: ATTEND Internal Medicine Medical Oncology
DX: C34.90 Malignant neoplasm of unspecified part of unspecified bronchus or lung (principal)

== ENCOUNTER → 2025-01-22 | Outpatient (CLI) | payer OTHER ==
[~2025-01-22] MED LIST changes: +ISOVUE-370 76% 100 ML VIAL As Ordered ONE; -LIDOCAINE 1% MDV 20 ML VIAL SC ONE; -PROC5TAB57 PO; +PROC5TAB81 PO
== END ==
LOC: M RAD 10:38
PROVIDERS: ATTEND Internal Medicine Medical Oncology
DX: C34.90 Malignant neoplasm of unspecified part of unspecified bronchus or lung (principal); J90 Pleural effusion, not elsewhere classified; J98.11 Atelectasis; R59.9 Enlarged lymph nodes, unspecified
CPT/HCPCS: 71260; 74177; Q9967